=== PATIENT | female | born 1995 | race Caucasian/White ===

== ENCOUNTER → 2020-07-25 14:32 | Outpatient (BNVA) | payer MEDICAID, SELFPAY | PROVIDERS: PCP Internal Medicine; Visit Provider Obstetrics & Gynecology | DX: N93.9 Abnormal uterine and vaginal bleeding, unspecified (principal); E28.2 Polycystic ovarian syndrome | CPT/HCPCS: 99212 ==

== ENCOUNTER 2021-06-03 19:37 | Emergency (ER) | payer BC, SELFPAY | END 2021-06-03 20:57 | disposition left against medical advice (07) | PROVIDERS: Emergency Provider Emergency Medicine; PCP Internal Medicine | DX: R55 Syncope and collapse (principal); R10.9 Unspecified abdominal pain ==

== ENCOUNTER 2021-06-10 08:43 | Emergency (ER) | payer BC, MEDICAID, SELFPAY ==
--- NOTE | 2021-06-10 | ECG_ITS ---
Test Reason : RAPID HR Blood Pressure : / mmHG Vent. Rate : 118 BPM Atrial Rate : 118 BPM P-R Int : 112 ms QRS Dur : 080 ms QT Int : 330 ms P-R-T Axes : 026 059 030 degrees QTc Int : 462 ms Sinus tachycardia Nonspecific ST abnormality Abnormal ECG When compared with ECG of 10-JUN-2021 12:08, ST now depressed in Septal leads Heart rate has increased Referred By: Roxana Reyez Electronically Signed By:ELAINE DAVENPORT
--- NOTE | ~2021-06-10 | XR_ITS ---
EXAMINATION: XR ABDOMEN KUB CLINICAL INDICATION: Evaluate stool burden COMPARISON: None TECHNIQUE: AP view of the abdomen. FINDINGS: There does not appear to be a large amount of stool in the colon. There is a small amount of stool seen in the right colon. There are no dilated loops of bowel to suggest obstruction. There is no evidence of free air. There are surgical clips in the right upper quadrant suggestive previous cholecystectomy. Bony structures are unremarkable. XR/XR KUB IMPRESSION: Normal bowel gas pattern.
--- NOTE | ~2021-06-10 | CT_ITS ---
EXAMINATION: CT ABDOMEN AND PELVIS WITH CONTRAST CLINICAL INFORMATION: Right lower quadrant pain. Evaluate for appendicitis COMPARISON: KUB 06/10/2001 TECHNIQUE: Multidetector volumetric images were obtained from the superior aspect of the liver through the pubic symphysis following administration 85 mL of Omnipaque 350 intravenous contrast. Sagittal and coronal reformatted images were obtained on the technologist's workstation. Oral contrast: No This CT examination was performed using dose optimization techniques as appropriate, variously including the following: *Automated exposure control *Adjustment of mA and/or kV according to patient size (this includes techniques or standardized protocols for targeted exams where dose is matched to indication/reason for exam; i.e. extremities or head) *Use of iterative reconstruction technique DLP: 1082. mGy-cm FINDINGS: LUNG BASES: The visualized lung bases are unremarkable. LIVER, GALLBLADDER, AND BILIARY TREE: The liver is normal in size, shape, and attenuation. No focal hepatic lesion or biliary ductal dilatation is present. The gallbladder has been surgically removed. PANCREAS: Unremarkable. SPLEEN: Unremarkable. ADRENAL GLANDS: Unremarkable. KIDNEYS AND URETERS: The kidneys are normal in size, shape, and attenuation. No hydronephrosis, hydroureter, or calculi seen. No perinephric stranding. BLADDER: Unremarkable. GASTROINTESTINAL TRACT: There is scattered stool and gas seen in the right colon. The ileocecal junction is normal. The appendix is normal caliber. No inflammatory process seen in the right lower quadrant. The small bowel loops are normal caliber. ABDOMINAL WALL: No significant hernia is appreciated. LYMPH NODES: Normal. VASCULAR: Unremarkable. PELVIC VISCERA: There is a 2.5 cm cyst in the right adnexa likely ovarian in the region. The uterus is anteverted and unremarkable. OSSEOUS STRUCTURES: No lytic or sclerotic process seen. CT/CT abdomen pelvis w con IMPRESSION: Small right ovarian cyst. Normal appendix. Mild constipation.
[2021-06-10 09:07] VITALS: BP 112/68; PULSE 114; RESP 19; TEMP 36.9; O2SAT 98; BMI 42.3
--- NOTE | 2021-06-10 09:57 | ED_ITS ---
HPI - Abdominal Pain General Chief Complaint: Abdominal Pain Stated Complaint: abd pain Time Seen by Provider: 06/10/21 09:39 Source: patient Mode of arrival: ambulatory Limitations: no limitations History of Present Illness HPI narrative: 25-year-old female with a past medical history of IBS, PCOS, asthma here with complaints of acute on chronic abdominal pain for about 1 week. Patient tells me this is associated with intermittent nausea and vomiting. She tells me that she was seen at [facility] on June 04 for this problem. She had lab work and a CT scan of her abdomen which was unrem arkable. She followed up with her GI(Kali) after this. They trialed hyoscyamine but patient only took for one day. She felt like it did not help so she discontinued the medication. She has tried Bentyl in the past for this pain and that has not helped either. She has had continued constipation which is normal with her IBS per patient. She was taking MiraLax but discontinued that. She still is having very small and hard stools. She does take a bulk fiber daily. She intermittently takes a laxative. Patient tells me the pain is persistent and is constant. She feels like it initially started around her belly button but is now more focal on the right lower abdomen. Denies any vaginal discharge, urinary symptoms, fevers, chills. Additionally, patient reports she has had several episodes of passing out in the last week. One occurred while taking a hot shower and another while moving her bowels. She feels hot, lightheaded and then loses consciousness. Related Data Previous Rx's Medication Instructions Recorded ferrous sulfate 325 mg (65 mg 325 mg PO BID #60 tab 07/25/20 iron) tablet ketorolac 10 mg tablet 10 mg PO Q8H PRN #20 tab 06/10/21 lorazepam 1 mg tablet 1 mg PO TID PRN #5 tab 06/10/21 Allergies Allergy/AdvReac Type Severity Reaction Status Date / Time pineapple AdvReac Mild unknown Verified 07/25/20 14:45 Review of Systems Review of Systems Yes all other systems are reviewed and are negative Constitutional: Reports no additional constitutional complaints, Denies body ache(s), Denies chills, Denies fever(s), Denies headache(s) and Denies weakness Eyes: Reports no additional eye complaints and Denies change in vision Reports system reviewed and no additional complaints, except as documented, Denies dizziness, Denies headache(s), Denies nasal congestion, Denies nasal discharge and Denies neck pain Cardiovascular: Reports no additional cardiovascular complaints, Denies chest pain, Reports syncope, Denies leg edema and Denies dyspnea Respiratory: Reports no additional respiratory complaints, Denies cough and Denies dyspnea Gastrointestinal: Reports no additional gastrointestinal complaints, Reports abdominal pain, Reports constipation, Denies diarrhea, Reports nausea and Reports vomiting Genitourinary: Reports no additional female genitourinary complaints and Denies urinary incontinence Musculoskeletal: Reports no additional musculoskeletal complaints, Denies back pain, Denies arthralgias, Denies joint swelling, Denies neck pain, Denies numbness and Denies tingling Skin/Breast: Reports system reviewed and no additional complaints, except as docu and Denies rash Reports system reviewed and no additional complaints, except as documented, Denies Abnormal speech present, Denies dizziness, Reports syncope, Denies headache(s), Denies numbness, Denies tingling and Denies weakness Physical Exam Vital Signs: Vital Signs: Last Vital Signs Temp 97.8 F 06/10/21 14:28 Pulse 105 H 06/10/21 14:28 Resp 24 H 06/10/21 14:28 BP 113/70 06/10/21 14:28 Pulse Ox 97 06/10/21 14:28 Body Mass Index 42.3 Const: General: cooperative, healthy appearing, comfortable and no acute distress Orientation/consciousness: patient oriented x3 Limitations: no limitations HENMT: Head: Yes normal to inspection Ears: hearing grossly normal bilaterally General nose exam: Normal external nose present Face and sinus: Yes normal facial exam Mouth: Normal oral and palatal mucosa present Throat: Yes posterior oropharynx normal Eyes: General: appearance normal, both eyes and all related structures Pup ils: Equal, round and reactive pupils present Neck: Neck: Yes normal visual inspection Chest: Chest palpation & inspection: normal inspection of the chest Resp: Effort & Inspection: normal respiratory effort Auscultation: clear to auscultation bilaterally Cardio: Rate: regular rate Rhythm: regular rhythm Peripheral pulses: Peripheral pulses 2+ throughout GI: Inspection: Yes normal to inspection Palpation (GI): Soft to palpation and Tenderness to palpation present (GI) (Diffusely tender but more focal in the right lower quadrant with guarding) Auscultation: normal bowel sounds Back/Spine/Pelvis: Thoracic/Lumbar Spine: thoracic and lumbar spine normal to inspection Skin: General skin exam: no rashes or lesions noted Neuro: General: patient oriented x3, no focal motor deficits and normal sensation to monofilament Cranial nerves: Yes CN's II-XII intact bilaterally, Yes Equal, round and reactive pupils present, Yes Bilaterally intact EOM present, Yes Nystagmus not present, Yes Normal facial strength present and Yes Midline tongue present Cognition (Neuro): normal cognition Speech: No Abnormal speech present Gait exam (Neuro): Normal gait present Motor exam (neuro): 5/5 motor strength present throughout Sensory Exam: Normal double simultaneous stimulation for sensation Coordination: tandem gait normal Extrem: General: Yes normal to inspection, Yes no pedal edema and Yes no calf tenderness Course Course Course Narrative: 25-year-old female with a past medical history of PCOS, IBS, asthma here with complaints of abdominal pain for about 1 week which has been constant, persistent with associated nausea and vomiting. She was seen initially at [facility] and had a CT scan which showed no acute findings. She was discharged home and followed up with her GI. She was trialed for about 1 day on a new anti spasmodic with continued symptoms. Patient is he re today because the pain is continued and is more severe and more focal in the right lower quadrant. Exam she does have diffuse tenderness but has more focal tenderness in the right lower quadrant. Patient had a CT scan on June 04 which showed a normal appendix so acute appendicitis less likely. Will repeat labs, UA. Will place PIV and give antiemetics and analgesia and reassess 1215-labs are unremarkable with the exception of a mildly elevated AST and ALT which are likely secondary to fatty liver disease. Patient tells me her pain is continued after a dose of IV Toradol. Will give dose of IV morphine, Zofran and reassessed. Will discuss with patient's GI. 1245-spoke to on-call GI for [facility] (Carmita Littlejohn NP) from Dr Bass office. Recommended obtaining KUB and they will follow with patient outpatient. They may consider adding amitriptyline outpatient for pain control. 1230-While the patient received morphine she had a syncopal episode witnessed by nursing. Patient quite concerned she had a seizure although no history of same. There was no shaking, no tongue bite, no incontinence or postictal state so less likely. It was witnessed by nurse Breanne. Likely side effect of morphine. EKG normal. Vitals are all stable. Will continue to monitor. 1310-Called into room as patient was very anxious. Complaining of some chest discomfort. Her heart rate was noted to be 150-160 sinus tachycardia on the heart monitor. Able to have the patient do some deep breathing with heart rate improved to 110 for EKG. Repeat EKG shows sinus tachycardia with a rate of 118. Will give patient 2 mg of Ativan and reassess. 1430-HR rate improved now to 102. Patient able to tolerate some saltine crackers and has not vomited once since being here. However, continued pain despite IV meds. KUB(There does not appear to be a large amount of stool in the colon. There is a small amount of stool seen in the right colon. 1445-Lengthy discussion with patient at bedside. She continues to be quite concerned about her abdominal pain although she is now tolerating PO and appears quite well. We discussed at length her labs. I do not feel like it is beneficial to repeat her CT scan but she is quite insistent on this. Therefore after discussion with Dr Beckham we will repeat her CT scan. Patient also continued to tell me her concern over her episode while receiving morphine. Patient tells me she has had similar episodes while showering and having a bowel movement previously. These sound vasovagal and I reassured the patient her labs and EKG are normal and she can follow-up with her PCP in regards to this. 1645-CT abdomen/pelvis shows small right ovarian cyst. Normal appendix. Mild constipation.? I spoke to patient and reviewed her CT scan results. She was given a copy of the report for home. . Recommended re-starting miralax daily. Taking the hycosamine consistently at home. She has had some relief with toradol and ativan here so I will call in a small supply to her pharmacy. I recommended she continue to follow-up with GI. She may need additional testing outpatient including a colonoscopy/endoscopy. She tells me she had one this year and it was normal with the exception of polyps. Recommended continue to follow up with GI. Patient additionally concerned over these 'fainting' episodes which she has had at home and once here. Based on the HPI these sound vasovagal. Patient tells me she believes she had a seizure but describes the episodes at home similar to the episode she had here. The episode today was witnessed by staff and was NOT a seizure but a syncopal episode. We discussed in a young female such as she is we have ruled out major causes of syncope (, anemia, electrolyte abnormality, arrhythmia). Patient is requesting to see a neurologist and a CT scan of her brain. She has a normal neuro exam with no deficit. No reports of weakness, weakness, paresthesias, fevers with recent reports of syncope in the last week. Underlying ICH or mass occupying lesion less likely. I explained at length to the patient these sound like vasovagal symptoms and she can follow-up with her PCP in regards to these. We discussed triggers and maintaining a safe environment at home. I do feel the patient is quite anxious and perseverating on her symptoms. We had multiple conversations at the bedside and both myself and Dr Beckham have spoken to the patient, the patient's brother, the patient's grandmother and her partner. I attempted to broach this as being a contributing factor the patient's symptoms but she was quite resistant to this conversation. -Patient discharged in care of partner. Reviewed worrisome signs/symptoms with patient and when to return to the ED. Comfortable with discharge home. MDM - Abdominal Pain Medical Records Attestation: I reviewed the patient's medical records. Lab Data Attestation: I reviewed the patient's lab results. Result diagrams: 06/10/21 10:27 06/10/21 10:27 Labs: Lab Results 06/10/21 06/10/21 06/10/21 Range/Units 10:27 10:27 11:58 WBC 10.2 (4.8-10.8) X10*3/uL RBC 4.34 (4.20-5.50) X10*6/uL Hgb 11.7 L (12.0-16.0) g/dl Hct 35.9 L (37-47) % MCV 82.7 (80-98) fL MCH 27.0 (27.0-33.0) pg MCHC 32.6 (31.0-35.0) g/dl RDW 13.3 (11.0-16.0) % Plt Count 309 (160-400) X10*3/uL MPV 9.7 (9.4-12.3) fL Immature Gran % (Auto) 0.2 (0.0-0.4) % Neut % (Auto) 73.8 H (45-73) % Lymph % (Auto) 20.2 (20-40) % Providence % (Auto) 5.3 (2-11) % Eos % (Auto) 0.2 (0-4) % Baso % (Auto) 0.3 (0-2) % Lymph # (Auto) 2.1 (1.2-4.9) X10*3/uL Providence # (Auto) 0.5 (0.1-1.2) X10*3/uL Eos # (Auto) 0.0 (0.0-0.4) X10*3/uL Baso # (Auto) 0.0 (0.0-0.2) X10*3/uL Abs Immat Gran (auto) 0.02 (0.00-0.03) X10*3/uL Absolute Neuts (auto) 7.6 (2.0-8.3) X10*3/uL Absolute Nucleated RBC 0.000 (0.0-0.012) X10*3/uL Nucleated RBC % (auto) 0.0 (0.0-0.2) /100WBC Sodium 139 (135-145) mmol/L Potassium 4.1 (3.3-5.1) mmol/L Chloride 105 (96-108) mmol/L Carbon Dioxide 26 (22-29) mmol/L Anion Gap 12 (12-20) BUN 9 (9-16) mg/dL Creatinine 0.79 (0.5-1.4) mg/dL Estim Creat Clear Calc 150.2 Estimated GFR > 60 Random Glucose 110 (60-115) mg/dL Calcium 8.8 (8.4-10.2) mg/dL Total Bilirubin 0.3 (0.0-1.0) mg/dL Direct Bilirubin 0.2 (0.0-0.5) mg/dL AST 35 H (5-31) U/L ALT 57 H (0-31) U/L Alkaline Phosphatase 127 H (39-117) U/L Total Protein 6.9 (6.5-8.0) g/dL Albumin 3.7 (3.5-5.0) g/dL Lipase 16 (8-78) U/L Urine Color YELLOW Urine Appearance CLEAR Urine pH 6.0 (5.0-8.0) Ur Specific Humphrey 1.015 (1.005-1.025) Urine Protein NEG (NEG-TRACE) MG/DL Urine Glucose (UA) NEG (NEG) MG/DL Urine Ketones NEG (NEG) MG/DL Urine Blood TRACE (NEG) Urine Nitrite NEG (NEG) Ur Leukocyte Esterase NEG (NEG) Urine RBC 0-2 (0) /HPF Urine WBC 1-4 (0-4) /HPF Ur Squamous Epith Cells 1+ /LPF Urine Bacteria NONE /LPF Urine Test (NEGATIVE) 06/10/21 Range/Units 11:58 WBC (4.8-10.8) X10*3/uL RBC (4.20-5.50) X10*6/uL Hgb (12.0-16.0) g/dl Hct (37-47) % MCV (80-98) fL MCH (27.0-33.0) pg MCHC (31.0-35.0) g/dl RDW (11.0-16.0) % Plt Count (160-400) X10*3/uL MPV (9.4-12.3) fL Immature Gran % (Auto) (0.0-0.4) % Neut % (Auto) (45-73) % Lymph % (Auto) (20-40) % Providence % (Auto) (2-11) % Eos % (Auto) (0-4) % Baso % (Auto) (0-2) % Lymph # (Auto) (1.2-4.9) X10*3/uL Providence # (Auto) (0.1-1.2) X10*3/uL Eos # (Auto) (0.0-0.4) X10*3/uL Baso # (Auto) (0.0-0.2) X10*3/uL Abs Immat Gran (auto) (0.00-0.03) X10*3/uL Absolute Neuts (auto) (2.0-8.3) X10*3/uL Absolute Nucleated RBC (0.0-0.012) X10*3/uL Nucleated RBC % (auto) (0.0-0.2) /100WBC Sodium (135-145) mmol/L Potassium (3.3-5.1) mmol/L Chloride (96-108) mmol/L Carbon Dioxide (22-29) mmol/L Anion Gap (12-20) BUN (9-16) mg/dL Creatinine (0.5-1.4) mg/dL Estim Creat Clear Calc Estimated GFR Random Glucose (60-115) mg/dL Calcium (8.4-10.2) mg/dL Total Bilirubin (0.0-1.0) mg/dL Direct Bilirubin (0.0-0.5) mg/dL AST (5-31) U/L ALT (0-31) U/L Alkaline Phosphatase (39-117) U/L Total Protein (6.5-8.0) g/dL Albumin (3.5-5.0) g/dL Lipase (8-78) U/L Urine Color Urine Appearance Urine pH (5.0-8.0) Ur Specific Humphrey (1.005-1.025) Urine Protein (NEG-TRACE) MG/DL Urine Glucose (UA) (NEG) MG/DL Urine Ketones (NEG) MG/DL Urine Blood (NEG) Urine Nitrite (NEG) Ur Leukocyte Esterase (NEG) Urine RBC (0) /HPF Urine WBC (0-4) /HPF Ur Squamous Epith Cells /LPF Urine Bacteria /LPF Urine Test NEGATIVE (NEGATIVE) Imaging Data Abdominal x-ray: Attestation: I personally reviewed and interpreted this imaging study as follows: Radiologist's impression: [place] [id number] XRay Report Signed Patient: Jossie Ramirez MR#: [id number] : 1995 Acct:[id number] Age/Sex: 25 / F ADM Date: 06/10/21 Loc: HO.ED Attending Dr: Ordering Physician: Roxana Reyez NP Date of Service: 06/10/21 Procedure(s): XR KUB Accession Number(s): [id number] cc: Roxana Reyez NP~ EXAMINATION: XR ABDOMEN KUB CLINICAL INDICATION: Evaluate stool burden? COMPARISON: None? TECHNIQUE: AP view of the abdomen. FINDINGS: There does not appear to be a large amount of stool in the colon. There is a small amount of stool seen in the right colon. There are no dilated loops of bowel to suggest obstruction. There is no evidence of free air. There are surgical clips in the right upper quadrant suggestive previous cholecystectomy. Bony structures are unremarkable. XR/XR KUB IMPRESSION: Normal bowel gas pattern. ? CT scan - abdomen: Attestation: I personally reviewed and interpreted this imaging study as follows: Radiologist's impression: FINDINGS: LUNG BASES: The visualized lung bases are unremarkable.? LIVER, GALLBLADDER, AND BILIARY TREE: The liver is normal in size, shape, and attenuation. No focal hepatic lesion or biliary ductal dilatation is present. The gallbladder has been surgically removed.? PANCREAS: Unremarkable.? SPLEEN: Unremarkable.? ADRENAL GLANDS: Unremarkable.? KIDNEYS AND URETERS: The kidneys are normal in size, shape, and attenuation. No hydronephrosis, hydroureter, or calculi seen. No perinephric stranding. ? BLADDER: Unremarkable.? GASTROINTESTINAL TRACT: There is scattered stool and gas seen in the right colon. The ileocecal junction is normal. The appendix is normal caliber. No inflammatory process seen in the right lower quadrant. The small bowel loops are normal caliber.? ABDOMINAL WALL: No significant hernia is appreciated.? LYMPH NODES: Normal. VASCULAR: Unremarkable. PELVIC VISCERA: There is a 2.5 cm cyst in the right adnexa likely ovarian in the region. The uterus is anteverted and unremarkable.? OSSEOUS STRUCTURES: No lytic or sclerotic process seen.? CT/CT abdomen pelvis w con IMPRESSION: Small right ovarian cyst. ? Normal appendix. Mild constipation.? ECG Data Attestation: I personally reviewed and interpreted this ECG as follows: ECG interpretation date: 06/10/21 ECG interpretation time: 12:08 Interpretation: Normal sinus rhythm with a rate of 90, normal PA, normal QRS, normal QT repeat 1310-sinus tachycardia with a rate of when 18, normal PA, normal QRS, normal QT Critical Care Time Critical Care Time Critical Care Time: Yes Total Critical Care Time: 120 Attestation: I have spoken to the patient at length at the bedside, discussed the case with my attending dr beckham, spoken to the patients GI provider, re- examined her abdomen on multiple occasions and spoke to her brother, grandmother and partner. Discharge Plan Discharge Clinical Impression: Abdominal pain, Irritable bowel syndrome, Ovarian cyst, Syncope Patient Disposition: Home, Self-Care Instructions: Ovarian Cyst (ED), Irritable Bowel Syndrome (ED), Syncope (ED), Abdominal Pain (ED) Additional Instructions: Start miralax daily as discussed Continue hyoscyamine up to 3 times daily Call GI tomorrow as discussed to follow-up. Call your primary care doctor to discuss your syncopal episodes. Change positions slowly. Eat small frequent meals. Safe environments at home as discussed. Prescriptions: New ketorolac 10 mg tablet 10 mg PO Q8H PRN (Reason: pain) Qty: 20 RF: 0 lorazepam 1 mg tablet 1 mg PO TID PRN (Reason: anxiety) Qty: 5 RF: 0 No Action ferrous sulfate 325 mg (65 mg iron) tablet 325 mg PO BID Qty: 60 RF: 3 Referrals: Po,Russ Membreno MD [Primary Care Provider] - 2 days Alisa Bass MD [Physician] - 2 days Stand Alone Forms: Work/School Release Discharge Date/Time: 06/10/21 17:00 [facility] Past Medical History Attestation statement: The following information was validated with the patient. Source: old records reviewed and nursing notes reviewed Medical History Anxiety and depression Asthma IBS (irritable bowel syndrome) Migraines PCOS (polycystic ovarian syndrome) Surgical History History of laparoscopic cholecystectomy History of tonsillectomy Family History Family History Maternal Grandmother Myocardial infarction Lymphoma Family/Other Colon cancer Social History Social History Alcohol intake: never Advance Directives: No Patient : No Sexual orientation: Straight/Heterosexual Gender identity: Female
[2021-06-10 10:19] VITALS: BP 97/58; PULSE 74; RESP 14; TEMP 36.7; O2SAT 97
[2021-06-10] MEDS: Ketorolac Tromethamine 15 MG/ML VIAL 30 MG IVPUSH ×2 (10:29→16:04)
[2021-06-10] MEDS: 0.9 % Sodium Chloride 1,000 ML 999 ML IV (10:29)
[2021-06-10] MEDS: ondansetron HCL 4 MG/2 ML VIAL IVPUSH ×2 (10:29→11:59)
[2021-06-10 10:31] LABS: MANUAL DIFF FLAG NO
[2021-06-10 10:35] LABS: Basophils Percent Auto 0.3 % (0-2); Eosinophils Percent Auto 0.2 % (0-4); Hematocrit 35.9 % (37-47); Hemoglobin 11.7 g/dl (12.0-16.0); Imm Gran Abs Auto 0.02 X10*3/uL (0.00-0.03); Imm Gran Pct Auto 0.2 % (0.0-0.4); Lymphocytes Absolute Auto 2.1 X10*3/uL (1.2-4.9); Lymphocytes Percent Auto 20.2 % (20-40); Mean Corpuscular HGB Conc 32.6 g/dl (31.0-35.0); Mean Corpuscular Volume 82.7 fL (80-98); Mean Platelet Volume 9.7 fL (9.4-12.3); Monocytes Absolute Auto 0.5 X10*3/uL (0.1-1.2); Monocytes Percent Auto 5.3 % (2-11); Neutrophils Absolute Auto 7.6 X10*3/uL (2.0-8.3); Neutrophils Percent Auto 73.8 % (45-73); Platelet Count 309 X10*3/uL (160-400); Red Blood Count 4.34 X10*6/uL (4.20-5.50); Red Cell Distribution Width 13.3 % (11.0-16.0); White Blood Count 10.2 X10*3/uL (4.8-10.8)
[2021-06-10 10:52] LABS: Alanine Aminotransferase 57 U/L (0-31); Albumin Level 3.7 g/dL (3.5-5.0); Alkaline Phosphatase 127 U/L (39-117); Anion Gap 12 (12-20); Aspartate Amino Transferase 35 U/L (5-31); Bilirubin Direct 0.2 mg/dL (0.0-0.5); Bilirubin Total 0.3 mg/dL (0.0-1.0); Blood Urea Nitrogen 9 mg/dL (9-16); Calcium 8.8 mg/dL (8.4-10.2); Carbon Dioxide 26 mmol/L (22-29); Chloride 105 mmol/L (96-108); Creatinine Clr Calc Pharmacy 150.2; Estimated Glomerular Filt Rate > 60; Glucose Random 110 mg/dL (60-115); Lipase 16 U/L (8-78); Potassium 4.1 mmol/L (3.3-5.1); Sodium 139 mmol/L (135-145); Total Protein 6.9 g/dL (6.5-8.0)
[2021-06-10 11:04] VITALS: BP 106/57; PULSE 72; RESP 18; TEMP 36.3; O2SAT 98
--- NOTE | 2021-06-10 11:37 | PC.NURSE ---
Patient states 7/10 abdominal pain. States some relief. States would like to try some water. Able to tolerate water. VSS. Resting safely.
[2021-06-10] MEDS: Morphine Sulfate 4 MG/ML CARTRIDGE IVPUSH (12:00)
--- NOTE | 2021-06-10 12:16 | ECG_ITS ---
Test Reason : SYNCOPE Blood Pressure : / mmHG Vent. Rate : 090 BPM Atrial Rate : 090 BPM P-R Int : 150 ms QRS Dur : 078 ms QT Int : 378 ms P-R-T Axes : 043 037 031 degrees QTc Int : 462 ms Normal sinus rhythm Normal ECG No previous ECGs available Referred By: Roxana Reyez Electronically Signed By:ELAINE DAVENPORT
[2021-06-10 12:22] LABS: Appearance Urine CLEAR; Color Urine YELLOW; Glucose Urine UA NEG (NEG); Leukocyte Esterase Urine NEG (NEG); Nitrite Urine NEG (NEG); Specific Gravity - Urine 1.015 (1.005-1.025); UACC Culture Trigger NO; Urine Blood TRACE (NEG); Urine Ketones NEG (NEG); Urine Protein NEG (NEG-TRACE)
[2021-06-10 12:24] LABS: UPreg QC Valid YES; Urine Pregnancy NEGATIVE (NEGATIVE)
[2021-06-10 12:41] LABS: RBC Urine 0-2 /HPF (0); Squamous Epithelial Cell Urine 1+ /LPF
[2021-06-10] MEDS: LORazepam 2 MG/ML VIAL IVPUSH (13:13)
--- NOTE | 2021-06-10 13:42 | PC.NURSE ---
At 1230 patient began to hyperventilate. HR went up to 160s. EKG done, vitals taken. VSS. Patient beared down by blowing through a straw. Resting safely. Around 1300 patient began hyperventilating again, HR went up to 160s. EKG done. Vitals take VSS. Resting safely.
[2021-06-10 14:28] VITALS: BP 113/70; PULSE 105; RESP 24; TEMP 36.6; O2SAT 97
[2021-06-10] MEDS: iohexoL 350 MG/ML 100 ML INFUS..BTL IV (15:30)
[2021-06-10] MEDS: diphenhydrAMINE HCL 50 MG/ML VIAL 25 MG IVPUSH (16:02)
[2021-06-10] MEDS: LORazepam 2 MG/ML VIAL 1 MG IVPUSH (16:04)
== END 2021-06-10 17:00 | disposition home or self-care (01) ==
PROVIDERS: Nurse Practitioner Family; Emergency Provider Emergency Medicine Emergency Medical Services; PCP Internal Medicine
DX: N83.201 Unspecified ovarian cyst, right side (principal); K58.9 Irritable bowel syndrome, unspecified; R55 Syncope and collapse; R10.9 Unspecified abdominal pain; Z79.899 Other long term (current) drug therapy
CPT/HCPCS: 36415; 74018; 74177; 80048; 80076; 81001; 81025; 83690; 85025; 93005; 96361; 96374; 96375; 96376; 99284; 99291; 99292; J1200; J1885; J2060; J2270; J2405; Q9967

== ENCOUNTER 2021-09-02 16:28 | Emergency (ER) | payer BC, SELFPAY ==
--- NOTE | ~2021-09-02 | XR_ITS ---
EXAMINATION: XR CHEST CLINICAL INFORMATION: Cough COMPARISON: None TECHNIQUE: Frontal view of the chest was obtained. FINDINGS: No significant abnormality is noted involving the heart, lungs, mediastinum, bony thorax or soft tissues. XR/XR chest 1V IMPRESSION: Unremarkable examination.
--- NOTE | ~2021-09-02 | CT_ITS ---
EXAMINATION: CT ANGIOGRAM OF THE CHEST WITH AND WITHOUT CONTRAST (CT PULMONARY ANGIOGRAM FOR PE) CLINICAL INFORMATION: Reason for Exam Hemoptysis COMPARISON: None TECHNIQUE: Prior to contrast administration, noncontrast localization images were obtained. Subsequently, multidetector volumetric imaging was performed from the thoracic inlet to below the diaphragms following the administration of 65 mL Omnipaque 350 intravenous contrast. No contrast reaction reported Sagittal, coronal, and MIP oblique sagittal reformatted images were obtained on the CT workstation, uploaded to PACS, and reviewed. This CT examination was performed using dose optimization techniques as appropriate, variously including the following: *Automated exposure control *Adjustment of mA and/or kV according to patient size (this includes techniques or standardized protocols for targeted exams where dose is matched to indication/reason for exam; i.e. extremities or head) *Use of iterative reconstruction technique Total exam dose-length product 507 mGy-cm FINDINGS: QUALITY OF STUDY/CONTRAST BOLUS: Satisfactory. PULMONARY ARTERIES: No central or segmental pulmonary emboli. THORACIC AORTA: No aneurysm or dissection. LUNG: No focal consolidation, nodules or masses. PLEURA: No pleural effusion or pneumothorax. MEDIASTINUM: Normal heart size. Residual thymic tissue is present. No pericardial effusion. No hilar or mediastinal lymphadenopathy. No evidence of septal bowing or right heart strain. CHEST WALL/AXILLA: No axillary or internal mammary lymphadenopathy. OSSEOUS STRUCTURES: No acute or suspicious osseous abnormality. UPPER ABDOMEN: A small hiatal hernia is present. Status post cholecystectomy. No reflux of contrast into the hepatic veins to suggest elevated right heart pressures. CT/CT angio chest PE protocol IMPRESSION: No evidence of pulmonary emboli VTE: negative
[2021-09-02 17:54] VITALS: BP 126/86; PULSE 94; RESP 20; TEMP 36.6; O2SAT 98; BMI 41.9
--- NOTE | 2021-09-02 17:56 | ECG_ITS ---
Test Reason : CP Blood Pressure : / mmHG Vent. Rate : 089 BPM Atrial Rate : 089 BPM P-R Int : 126 ms QRS Dur : 076 ms QT Int : 354 ms P-R-T Axes : 029 024 016 degrees QTc Int : 430 ms Normal sinus rhythm Normal ECG When compared with ECG of 10-JUN-2021 13:10, No significant change was found Referred By: Generic ED Physician Electronically Signed By:VALERIO SIMS
--- NOTE | 2021-09-02 20:24 | ED_ITS ---
HPI - Chest Pain General Chief Complaint: Chest Pain Stated Complaint: coughing blood; chest pain Source: patient Mode of arrival: ambulatory Limitations: no limitations History of Present Illness HPI narrative: 25-year-old female presents with approximately 1 month of hemoptysis with blood clots and chest pain for approximately 1 week. complaint: chest pain and chest discomfort Onset (ago): week(s) Timing of current episode: episodic Pain location: right chest Pain radiation: none Severity: moderate Quality: aching Relieving factors: nothing Associated symptoms: other (Hemoptysis) Treatment prior to arrival: none Risk Factors Coronary artery disease risk factors: none Thoracic aortic dissection risk factors: none Related Data On Oral Contraceptives: Yes (NuvaRing) Home Medications Medication Instructions Recorded Confirmed lactobacillus combo no.11 15 1 cap PO DAILY 06/12/21 09/02/21 billion cell sprinkle capsule (Probiotic) prazosin 1 mg capsule 1 mg PO BEDTIME 06/12/21 09/02/21 wheat dextrin 3 gram/3.5 gram oral 1 packet PO DAILY 06/12/21 09/02/21 powder (Best Fiber) etonogestrel 0.12 mg-ethinyl 1 vag ring VAGINAL Q4W 09/02/21 09/02/21 estradiol 0.015 mg/24 hr vaginal ring (NuvaRing) melatonin 5 mg capsule mg PO 09/02/21 09/02/21 venlafaxine 100 mg tablet 375 mg PO DAILY tab 09/02/21 09/02/21 Previous Rx's Medication Instructions Recorded ferrous sulfate 325 mg (65 mg 325 mg PO DAILY #60 tab 06/12/21 iron) tablet hydroxyzine pamoate 25 mg capsule 25 mg PO BEDTIME #30 cap 09/02/21 (Vistaril) Allergies Allergy/AdvReac Type Severity Reaction Status Date / Time beeswax Allergy Anaphylaxis Verified 09/02/21 17:53 morphine Allergy Seizure Verified 09/02/21 17:53 pineapple AdvReac Mild unknown Verified 09/02/21 17:53 coconut AdvReac Rash Verified 09/02/21 17:53 Review of Systems Review of Systems: Constitutional: No Weight loss, No Fever, No Chills, No Night Sweats, No Fa tigue, No Malaise ENT/Mouth: No Hearing loss, No Ear Pain, No Nasal Congestion, No Sinus Pain, No Hoarseness, No sore throat, No Rhinorrhea, No Swallowing Difficulty Eyes: No Eye Pain, No Swelling, No Redness, No Foreign Body, No Discharge, No Vision Changes Cardiovascular: Positive Chest Pain, no SOB, no Dyspnea on Exertion, No Orthopnea, No Edema, No Palpitations Respiratory: Positive hemoptysis,Positive Cough, No Sputum, No Wheezing, No Smoke Exposure, No Dyspnea Gastrointestinal: No Nausea, No Vomiting, No Diarrhea, No abdominal Pain, No Hematochezia, No Melena Genitourinary: No irregular bleeding, No Dysuria, No Urinary Frequency, No Hematuria, No Urinary Incontinence, No Urgency, No Flank Pain, No Urinary Flow Changes, No Hesitancy Musculoskeletal: No joint pain, No Myalgias, No Joint Swelling Skin: No Skin Lesions, No rash Neuro: No Weakness, No Numbness, No Paresthesias, No Loss of Consciousness, No Dizziness, No Headache Psych: No Anxiety/Panic, No Depression, No SI/HI/AH/VH Heme/Lymph: No Bruising, No Bleeding,No Lymphadenopathy Endocrine: No Polyuria, No Polydipsia, No Temperature Intolerance Yes all other systems are reviewed and are negative [facility] Past Medical History Attestation statement: The following information was validated with the patient. Source: old records reviewed Medical History Anxiety and depression Asthma IBS (irritable bowel syndrome) Migraines PCOS (polycystic ovarian syndrome) Surgical History History of laparoscopic cholecystectomy History of tonsillectomy Family History Family History Maternal Grandmother Myocardial infarction Lymphoma Family/Other Colon cancer Social History Social History Housing: House Alcohol intake: never Patient Tobacco Use Status: Never used Tobacco e-Cigarette/Vaping Use: Never Used Second Hand Smoke Exposure: No Advance Directives: No Advance Directives Information Provided: No Patient : No Current occupational status: employed Sexual orientation: Straight/Heterosexual Gender identity: Female Physical Exam Vital Signs: Vital Signs: Last Vital Signs Temp 97.9 F 09/02/21 17:54 Pulse 105 H 09/02/21 21:50 Resp 22 H 09/02/21 21:50 BP 128/66 09/02/21 21:50 Pulse Ox 98 09/02/21 21:50 BMI result Body Mass Index 41.9 Appearance: Alert. Oriented X3. No acute distress. Eyes: Pupils equal, round and reactive to light. ENT: Pharynx normal. Neck: Normal inspection. Neck supple. CVS: Tachycardic heart rate and rhythm. Apical pulses equal 2 pulses to extremities. Respiratory: No respiratory distress. Lung sounds clear to auscultation all lobes. Abdomen: Soft and nontender. Skin: Skin warm and dry. Normal skin color. Normal skin turgor. Extremities: No lower extremity edema. Gait well-balanced well coordinated. Neuro: No motor deficit. No sensory deficit. Cranial nerves 2-12 intact Course Course Course Narrative: 25-year-old female presents for hemoptysis has been coughing blood clots over the past month. She coughed up a blood clot today that was about the size of a quarter. She is tachycardic at this time the heart rate 90- 97. Does use NuvaRing control. Family history of tuberculosis. Patient has been tested for tuberculosis in the past which is negative. She has not traveled outside of the country does not have any other complaints at this time. X-rays are negative at this time. Will order CT study. CT PE negative for acute findings. Will refer patient to pulmonology for hemoptysis. Patient verbalized understanding of and agrees to plan of care discharge home. MDM - Chest Pain Differential Diagnosis Differential diagnosis: Likely fracture of rib, pneumothorax, atypical chest pain, st elevation myocardial infarction, costochondritis and chest pain Differential diagnosis: PE Medical Records Data Attestation: I reviewed the patient's medical records. Lab Data Attestation: I reviewed the patient's lab results. Result diagrams: 09/02/21 20:19 09/02/21 20:19 Labs: Lab Results 09/02/21 09/02/21 09/02/21 Range/Units 20:19 20:19 20:19 WBC 12.3 H (4.8-10.8) X10*3/uL RBC 4.74 (4.20-5.50) X10*6/uL Hgb 12.7 (12.0-16.0) g/dl Hct 39.3 (37.0-47.0) % MCV 82.9 (80.0-98.0) fL MCH 26.8 L (27.0-33.0) pg MCHC 32.3 (31.0-35.0) g/dl RDW 14.3 (11.0-16.0) % Plt Count 347 (160-400) X10*3/uL MPV 10.1 (9.4-12.3) fL Immature Gran % (Auto) 0.3 (0.0-0.4) % Neut % (Auto) 72.8 (45-73) % Lymph % (Auto) 21.7 (20-40) % Major % (Auto) 5.0 (2-11) % Eos % (Auto) 0.0 (0-4) % Baso % (Auto) 0.2 (0-2) % Lymph # (Auto) 2.7 (1.2-4.9) X10*3/uL Major # (Auto) 0.6 (0.1-1.2) X10*3/uL Eos # (Auto) 0.0 (0.0-0.4) X10*3/uL Baso # (Auto) 0.0 (0.0-0.2) X10*3/uL Abs Immat Gran (auto) 0.04 H (0.00-0.03) X10*3/uL Absolute Neuts (auto) 9.0 H (2.0-8.3) x10*3/uL Absolute Nucleated RBC 0.000 (0.0-0.012) X10*3/uL Nucleated RBC % (auto) 0.0 (0.0-0.2) /100WBC Sodium 138 (135-145) mmol/L Potassium 4.0 (3.3-5.1) mmol/L Chloride 105 (96-108) mmol/L Carbon Dioxide 23 (22-29) mmol/L Anion Gap 14 (12-20) BUN 11 (9-16) mg/dL Creatinine 0.83 (0.5-1.4) mg/dL Estim Creat Clear Calc 137.7 Estimated GFR > 60 Random Glucose 91 (60-115) mg/dL Calcium 9.5 D (8.4-10.2) mg/dL Troponin I High Sens < 3.5 (<3.5-17.0) ng/L Urine Color Urine Appearance Urine pH (5.0-8.0) Ur Specific [place] (1.005-1.025) Urine Protein (NEG-TRACE) MG/DL Urine Glucose (UA) (NEG) MG/DL Urine Ketones (NEG) MG/DL Urine Blood (NEG) Urine Nitrite (NEG) Ur Leukocyte Esterase (NEG) Urine RBC (0) /HPF Urine WBC (0-4) /HPF Ur Squamous Epith Cells /LPF Urine Bacteria /LPF Urine Test (NEGATIVE) COVID-19 ([facility]) (Negative) COVID-19 Clin Com 09/02/21 09/02/21 09/02/21 Range/Units 20:19 21:08 21:08 WBC (4.8-10.8) X10*3/uL RBC (4.20-5.50) X10*6/uL Hgb (12.0-16.0) g/dl Hct (37.0-47.0) % MCV (80.0-98.0) fL MCH (27.0-33.0) pg MCHC (31.0-35.0) g/dl RDW (11.0-16.0) % Plt Count (160-400) X10*3/uL MPV (9.4-12.3) fL Immature Gran % (Auto) (0.0-0.4) % Neut % (Auto) (45-73) % Lymph % (Auto) (20-40) % Major % (Auto) (2-11) % Eos % (Auto) (0-4) % Baso % (Auto) (0-2) % Lymph # (Auto) (1.2-4.9) X10*3/uL Major # (Auto) (0.1-1.2) X10*3/uL Eos # (Auto) (0.0-0.4) X10*3/uL Baso # (Auto) (0.0-0.2) X10*3/uL Abs Immat Gran (auto) (0.00-0.03) X10*3/uL Absolute Neuts (auto) (2.0-8.3) x10*3/uL Absolute Nucleated RBC (0.0-0.012) X10*3/uL Nucleated RBC % (auto) (0.0-0.2) /100WBC Sodium (135-145) mmol/L Potassium (3.3-5.1) mmol/L Chloride (96-108) mmol/L Carbon Dioxide (22-29) mmol/L Anion Gap (12-20) BUN (9-16) mg/dL Creatinine (0.5-1.4) mg/dL Estim Creat Clear Calc Estimated GFR Random Glucose (60-115) mg/dL Calcium (8.4-10.2) mg/dL Troponin I High Sens (<3.5-17.0) ng/L Urine Color YELLOW Urine Appearance CLEAR Urine pH 6.0 (5.0-8.0) Ur Specific [place] 1.025 (1.005-1.025) Urine Protein NEG (NEG-TRACE) MG/DL Urine Glucose (UA) NEG (NEG) MG/DL Urine Ketones NEG (NEG) MG/DL Urine Blood TRACE (NEG) Urine Nitrite NEG (NEG) Ur Leukocyte Esterase NEG (NEG) Urine RBC 0-2 (0) /HPF Urine WBC 1-4 (0-4) /HPF Ur Squamous Epith Cells 2+ /LPF Urine Bacteria 2+ /LPF Urine Test NEGATIVE (NEGATIVE) COVID-19 ([facility]) Negative (Negative) COVID-19 Clin Com See Note Imaging Data Chest x-ray: Attestation: I personally reviewed and interpreted this imaging study as follows: Radiologist's impression: EXAMINATION: XR CHEST CLINICAL INFORMATION: Cough COMPARISON: None TECHNIQUE: Frontal view of the chest was obtained. FINDINGS: No significant abnormality is noted involving the heart, lungs, mediastinum, bony thorax or soft tissues. XR/XR chest 1V IMPRESSION: Unremarkable examination. CT PE: Attestation: I personally reviewed and interpreted this imaging study as follows: Radiologist's impression: FINDINGS: QUALITY OF STUDY/CONTRAST BOLUS: Satisfactory. PULMONARY ARTERIES: No central or segmental pulmonary emboli.? THORACIC AORTA: No aneurysm or dissection. LUNG: No focal consolidation, nodules or masses. PLEURA: No pleural effusion or pneumothorax. MEDIASTINUM: Normal heart size. Residual thymic tissue is present. No pericardial effusion.? No hilar or mediastinal lymphadenopathy.? No evidence of septal bowing or right heart strain. CHEST WALL/AXILLA: No axillary or internal mammary lymphadenopathy. OSSEOUS STRUCTURES: No acute or suspicious osseous abnormality.? UPPER ABDOMEN: A small hiatal hernia is present. Status post cholecystectomy. No reflux of contrast into the hepatic veins to suggest elevated right heart pressures. CT/CT angio chest PE protocol IMPRESSION: No evidence of pulmonary emboli ? VTE: negative Discharge Plan Discharge Clinical Impression: Coughing up blood Patient Disposition: Home, Self-Care Instructions: Hemoptysis (ED) Additional Instructions: You were evaluated for hemoptysis, coughing of blood. Chest x-rays negative for acute findings. CT PE is negative for blood clots and pulmonary embolism. Your lab values are limits. Your COVID test is negative. Please follow-up with pulmonology for hemoptysis. Thank you for choosing this emergency department for evaluation. Please follow -up with primary care physician as needed. Return to the emergency department for any new, concerning, or worsening symptoms. Prescriptions: No Action venlafaxine 100 mg tablet 375 mg PO DAILY RF: 0 etonogestrel-ethinyl estradiol [NuvaRing] 0.12-0.015 mg/24 hr ring 1 vag ring vaginal Q4W RF: 0 melatonin 5 mg capsule PO RF: 0 hydroxyzine pamoate [Vistaril] 25 mg capsule 25 mg PO BEDTIME Qty: 30 RF: 0 prazosin 1 mg capsule 1 mg PO BEDTIME RF: 0 Best Fiber 3 gram/3.5 gram powder 1 packet PO DAILY RF: 0 Probiotic 15 billion cell capsule, sprinkle 1 cap PO DAILY RF: 0 ferrous sulfate 325 mg (65 mg iron) tablet 325 mg PO DAILY Qty: 60 RF: 3 Referrals: Frank Andre MD [Physician] - 2 days (Hemoptysis) Interventions: ED Discharge Assessment Last Done: 09/02/21 23:24 Discharge Date/Time: 09/02/21 23:26
[2021-09-02 20:28] LABS: MANUAL DIFF FLAG NO
[2021-09-02 20:29] LABS: Basophils Percent Auto 0.2 % (0-2); Hematocrit 39.3 % (37.0-47.0); Hemoglobin 12.7 g/dl (12.0-16.0); Imm Gran Abs Auto 0.04 X10*3/uL (0.00-0.03); Imm Gran Pct Auto 0.3 % (0.0-0.4); Lymphocytes Absolute Auto 2.7 X10*3/uL (1.2-4.9); Lymphocytes Percent Auto 21.7 % (20-40); Mean Corpuscular HGB Conc 32.3 g/dl (31.0-35.0); Mean Corpuscular Hemoglobin 26.8 pg (27.0-33.0); Mean Corpuscular Volume 82.9 fL (80.0-98.0); Mean Platelet Volume 10.1 fL (9.4-12.3); Monocytes Absolute Auto 0.6 X10*3/uL (0.1-1.2); Neutrophils Percent Auto 72.8 % (45-73); Platelet Count 347 X10*3/uL (160-400); Red Blood Count 4.74 X10*6/uL (4.20-5.50); Red Cell Distribution Width 14.3 % (11.0-16.0); White Blood Count 12.3 X10*3/uL (4.8-10.8)
[2021-09-02 20:44] LABS: COVID-19 Test Negative (Negative)
[2021-09-02 20:45] LABS: Anion Gap 14 (12-20); Blood Urea Nitrogen 11 mg/dL (9-16); Calcium 9.5 mg/dL (8.4-10.2); Carbon Dioxide 23 mmol/L (22-29); Chloride 105 mmol/L (96-108); Creatinine Clr Calc Pharmacy 137.7; Estimated Glomerular Filt Rate > 60; Glucose Random 91 mg/dL (60-115); Sodium 138 mmol/L (135-145)
[2021-09-02 20:47] LABS: Troponin-I High Sensitivity < 3.5 ng/L (<3.5-17.0)
[2021-09-02 21:15] LABS: Appearance Urine CLEAR; Color Urine YELLOW; Glucose Urine UA NEG (NEG); Leukocyte Esterase Urine NEG (NEG); Nitrite Urine NEG (NEG); Specific Gravity - Urine 1.025 (1.005-1.025); UACC Culture Trigger NO; Urine Blood TRACE (NEG); Urine Ketones NEG (NEG); Urine Protein NEG (NEG-TRACE)
[2021-09-02 21:16] LABS: UPreg QC Valid YES; Urine Pregnancy NEGATIVE (NEGATIVE)
[2021-09-02 21:25] LABS: Bacteria Urine 2+ /LPF; Squamous Epithelial Cell Urine 2+ /LPF
[2021-09-02 21:26] LABS: RBC Urine 0-2 /HPF (0)
--- NOTE | 2021-09-02 21:46 | PC.NURSE ---
pt up to restroom for urine sample to lab for eval.
[2021-09-02 21:50] VITALS: BP 128/66; PULSE 105; RESP 22; O2SAT 98
[2021-09-02] MEDS: iohexoL 350 MG/ML 100 ML INFUS..BTL IV (22:03)
== END 2021-09-02 23:26 | disposition home or self-care (01) ==
PROVIDERS: Nurse Practitioner Family; Emergency Provider Internal Medicine; PCP Internal Medicine
DX: R04.2 Hemoptysis (principal); R07.9 Chest pain, unspecified; Z79.899 Other long term (current) drug therapy; Z20.822 Contact with and (suspected) exposure to COVID-19
CPT/HCPCS: 36415; 71045; 71275; 80048; 81001; 81025; 84484; 85025; 87635; 93005; 99284; Q9967

== ENCOUNTER → 2021-09-09 13:24 | Outpatient (BNVA) | payer BC, SELFPAY | PROVIDERS: PCP Internal Medicine; Visit Provider Internal Medicine Pulmonary Disease ==

== ENCOUNTER 2021-09-09 13:48 | Outpatient (REF) | payer BC, SELFPAY ==
[2021-09-09 14:00] LABS: MANUAL DIFF FLAG NO
[2021-09-09 14:23] LABS: Basophils Percent Auto 0.1 % (0-2); Hematocrit 42.6 % (37.0-47.0); Hemoglobin 13.8 g/dl (12.0-16.0); Imm Gran Abs Auto 0.04 X10*3/uL (0.00-0.03); Imm Gran Pct Auto 0.6 % (0.0-0.4); Lymphocytes Absolute Auto 2.2 X10*3/uL (1.2-4.9); Lymphocytes Percent Auto 31.2 % (20-40); Mean Corpuscular HGB Conc 32.4 g/dl (31.0-35.0); Mean Corpuscular Hemoglobin 26.8 pg (27.0-33.0); Mean Corpuscular Volume 82.9 fL (80.0-98.0); Mean Platelet Volume 10.4 fL (9.4-12.3); Monocytes Absolute Auto 0.5 X10*3/uL (0.1-1.2); Monocytes Percent Auto 7.3 % (2-11); Neutrophils Absolute Auto 4.2 x10*3/uL (2.0-8.3); Neutrophils Percent Auto 60.8 % (45-73); Platelet Count 379 X10*3/uL (160-400); Red Blood Count 5.14 X10*6/uL (4.20-5.50); Red Cell Distribution Width 14.2 % (11.0-16.0)
[2021-09-09 14:28] LABS: INTERNATIONAL NORM RATIO 1.2 (0.9-1.1); Prothrombin Time 13.6 SEC (9.9-13.0)
== END 2021-09-09 13:49 | disposition home or self-care (01) ==
LOC: HO.LAB 13:48
PROVIDERS: PCP Internal Medicine; Visit Provider Internal Medicine Pulmonary Disease
DX: R04.2 Hemoptysis (principal)
CPT/HCPCS: 36415; 85025; 85610

== ENCOUNTER → 2022-03-12 13:34 | Outpatient (REF) | payer BC, MEDICAID, SELFPAY ==
--- NOTE | 2022-03-12 13:37 | ECG_ITS ---
Hook-up date: 2022-03-12 12:47:00 Duration: 47:59:00 Test Indications: SYNCOPE AND COLLAPSE Medications: [id number] QRS complexes 10 Ventricular ectopics which represent <1 % of total QRS comp. 81 Supraventricular ectopics which represent <1 % of total QRS comp. * Paced QRS complexs which represent % of total QRS comp. VENTRICULAR ECTOPY 10 Isolated 0 Bigeminal Cycles 0 Couplets 0 Runs 0 Beats in Runs * Beats LONGEST at * BPM at :: -- * Beats FASTEST at * BPM at :: -- SUPRAVENTRICULAR ECTOPY 69 Isolated 6 Couplets 0 Runs 0 Beats in Runs * Beats LONGEST at * BPM at :: -- * Beats FASTEST at * BPM at :: -- HEART RATES 49 MIN at 07:26:23 2022-03-13 95 AVG 184 MAX at 12:50:22 2022-03-12 LONGEST RR 1.3920 secs at 04:03:43 2022-03-13 S-T LEVELS Channel 1 - 128 mm at 12:47:00 2022-03-12 - 128 mm at 12:47:00 2022-03-12 Channel 2 - 128 mm at 12:47:00 2022-03-12 - 128 mm at 12:47:00 2022-03-12 Channel 3 - 128 mm at 03:20:61 -- - 128 mm at 03:20:61 Basic rhythm Normal sinus rhythm No long pause or profound bradycardia Frequent Sinus tachycardia , 48% of time HR > 100 bpm Rare Premature atrial complexes Patient reported symptoms of dizziness correlated with NSR Referred By: Russ Lozoya Overread By: SALOME MAXWELL MD
== END ==
LOC: HO.CARD 13:34
PROVIDERS: Visit Provider Internal Medicine
DX: R55 Syncope and collapse (principal)
CPT/HCPCS: 93225; 93226

== ENCOUNTER 2022-04-05 10:35 | Outpatient (REF) | payer BC, MEDICAID, SELFPAY ==
--- NOTE | ~2022-04-05 | XR_ITS ---
EXAMINATION: XR CHEST CLINICAL INFORMATION: Shortness of breath. COMPARISON: 09/02/2021 chest radiograph. TECHNIQUE: 2 views of the chest were obtained. FINDINGS: No significant abnormality is noted involving the heart, lungs, mediastinum, bony thorax or soft tissues. XR/XR chest 2V IMPRESSION: No acute cardiopulmonary process.
[2022-04-05 13:52] LABS: D Dimer High Sensitivity 582 NG/ML
== END 2022-04-05 10:36 | disposition home or self-care (01) ==
LOC: HO.HMGCX 10:35
PROVIDERS: PCP Internal Medicine; Visit Provider Physician Assistant
DX: R06.02 Shortness of breath (principal)
CPT/HCPCS: 36415; 71046; 85379

== ENCOUNTER → 2022-11-29 15:12 | Outpatient (REF) | payer BC, SELFPAY | LOC: HO.SL 15:12 | PROVIDERS: Visit Provider Internal Medicine | DX: F51.5 Nightmare disorder (principal); R06.83 Snoring | CPT/HCPCS: 95806 ==

== ENCOUNTER 2023-01-31 12:53 | Outpatient (REF) | payer BC, OTHER, SELFPAY | END 2023-01-31 12:54 | disposition home or self-care (01) | LOC: HO.SH 12:53 | PROVIDERS: Visit Provider Internal Medicine | DX: Z01.118 Encounter for examination of ears and hearing with other abnormal findings (principal); H93.13 Tinnitus, bilateral | CPT/HCPCS: 92557; 92567 ==

== ENCOUNTER 2024-02-01 13:42 | Outpatient (AMB) | payer BC, SELFPAY ==
[2024-02-01 14:10] VITALS: BP 128/78; PULSE 103; O2SAT 98; BMI 51.0
--- NOTE | 2024-02-01 14:10 | MHC.PC.OV ---
Vital Signs 02/01/24 14:10 Height 5 ft 6 in Weight 316 lb BMI 51.0 BP 128/78 Blood Pressure Location Lt brachial Position Sitting Pulse 103 H Pulse Source Pulse Oximeter Pulse Oximetry (%) 98 Oxygen Delivery Method Room Air Intake Visit Reasons: Annual Exam Allergies beeswax Allergy (Verified 02/01/24 14:11) Anaphylaxis morphine Allergy (Verified 02/01/24 14:11) Seizure pineapple Adverse Reaction (Mild, Verified 02/01/24 14:11) unknown coconut Adverse Reaction (Verified 02/01/24 14:11) Rash Medication List - Last Reconciled 02/01/24 by Russ Membreno Po, albuterol sulfate 90 mcg/actuation 2 puffs inhalation Q6H PRN fluticasone propionate 110 mcg/actuation 2 puffs inhalation BID 30 days hydroxyzine pamoate (Vistaril) 25 mg PO BEDTIME ibuprofen 400 mg PO Q8H lactobacillus combo no.11 (Probiotic) 1 cap PO DAILY nortriptyline 25 mg PO BEDTIME PRN omeprazole 40 mg PO BID PRN sumatriptan succinate (Imitrex) 50 mg PO .QD PRN topiramate (Topamax) 25 mg PO DAILY venlafaxine ER 150 mg PO BEDTIME 90 days wheat dextrin (Best Fiber) 1 packet PO DAILY Tobacco use date assessed: 02/01/24 Dental Screening Dental Screen Date: 02/01/24 Did you have a dental visit in the last 12 months?: Yes Did you have a dental problem in the last 6 months where you did not have access to dental care?: No Was dental information given to patient?: Patient has dentist HPI Annual Exam HPI Details 28-year-old morbidly obese female with asthma GERD generalized anxiety disorder last seen in October 2022 patient is here for physical exam. Patient had colonoscopy done May 2022 tubular adenoma 5 years, had a normal sleep study. Review of the notes went to a vascular surgeon due to pain on the calf had ultrasound done negative left. Patient had a procedure for the left ankle instability lateral had left 1st metatarsal closing wedge osteotomy, lateral ligament reconstruction or hyper production procedure Dr. Ordoñez May 2023. PAtient has the hardware on the L ankle and is having pain on this - asking for taking off the hardware and awaiting Dr. Ordoñez. syncope while showering, seconds, . has palpations occ knows when stopping venlafexine PFSH Medical History (Updated 02/01/24 @ 14:46 by Russ Lozoya MD) Left chest pressure Coughing up blood IBS (irritable bowel syndrome) Anxiety and depression Migraines PCOS (polycystic ovarian syndrome) Asthma Surgical History (Updated 01/29/24 @ 14:16 by Russ Lozoya MD) Left ankle instability History of tonsillectomy History of laparoscopic cholecystectomy Family History (Updated 02/01/24 @ 14:12 by Paulina Bauer [facility] [address]) Maternal Grandmother Myocardial infarction Lymphoma Family/Other Colon cancer Social History (Updated 02/01/24 @ 14:32 by Russ Lozoya MD) Housing: House Alcohol intake: current Comment: once Q 3-4 months 2 drinks Patient Tobacco Use Status: Never used Tobacco Years Smoked: edibles occ e-Cigarette/Vaping Use: Never Used Second Hand Smoke Exposure: No Current occupational status: employed Sexual orientation: Straight/Heterosexual Gender identity: Female Cognitive needs: No Hearing needs: No Vision needs: No Questionnaire PHQ-9 Over the last 2 weeks, how often have you been bothered by any of the following problems? 1. Little interest or pleasure in doing things: not at all 2. Feeling down, depressed, or hopeless: not at all 3. Trouble falling or staying asleep, or sleeping too much: not at all 4. Feeling tired or having little energy: not at all 5. Poor appetite or overeating: not at all 6. Feeling bad about yourself - or that you are a failure or have let yourself or your family down: not at all 7. Trouble concentrating on things, such as reading the newspaper or watching television: not at all 8. Moving or speaking so slowly that other people could have noticed. Or the opposite - being so fidgety or restless that you have been moving around a lot more than usual: not at all 9. Thoughts that you would be better off or of hurting yourself in some way: not at all Total score: 0 Depression Screening Interpretation: Negative Depression Screening Done: Yes Source: Developed by Drs. Yaya Coughlin, Meagan Bah, Eren Maciel and colleagues, with an educational gilberto from [employer]. Thrive Questionnaire Date Thrive assessed: 02/01/24 I am a: Patient What is your living situation today?: I have a steady place to live Within the past 12 months, did the food you bought not last and you didn't have the money to get more?: Never true Within the past 12 months, did you worry whether your food would run out before you got money to buy more?: Never true Do you have trouble paying for medicines?: No Do you have trouble getting transportation to medical appointments?: No Do you have trouble paying your heating and electricity bill?: No Do you have trouble taking care of your child, family member or friend?: No Do you have trouble with day-to-day activities such as bathing, preparing meals, shopping, managing finances, etc.?: No Are you currently unemployed and looking for a job?: No Are you interested in more education?: No Currently or been in a relationship where the following occur: no concerns reported THRIVE Score: 0 AUDIT C Alcohol Use Questionnaire (AUDIT-C) 1. How often do you have a drink containing alcohol?: Monthly or less 2. How many drinks containing alcohol do you have on a typical day when you are drinking?: 1 or 2 3. How often do you have six or more drinks on one occasion?: Never Total Score: 1 MOON-7 AMB Questionnaire MOON-7 Date MOON - 7 assessed: 02/01/24 Feeling nervous, anxious, or on edge: 3 = Nearly every day Not being able to stop or control worryin = Nearly every day Worrying too much about different things: 3 = Nearly every day Trouble relaxin = Nearly every day Being so restless that it is hard to sit still: 3 = Nearly every day Becoming easily annoyed or irritable: 3 = Nearly every day Feeling afraid as if something awful might happen: 2 = More than half the days Total MOON-7 score (0-4 normal; 5-9 mild; 10-14 moderate; 15-21 severe): 20 Source: Developed by Drs. Yaya Coughlin, Meagan Bah, Eren Maciel and colleagues, with an educational gilberto from [employer]. Review of Systems Const Denies poor appetite and Denies weakness Eyes Denies no additional complaints ENT Reports Normal hearing present, Denies dizziness, Denies nasal congestion, Denies tinnitus and Denies sore throat Card Denies chest pain, Denies syncope, Denies rapid heart rate and Denies dyspnea Resp Denies cough and Denies dyspnea GI Denies change in stool character, Reports constipation, Denies diarrhea, Denies nausea and Denies vomiting Denies urinary frequency, Denies difficulty voiding and Denies dysuria Neuro Reports Normal hearing present, Denies confusion, Denies dizziness, Denies syncope and Denies weakness Psych Denies confusion Physical exam (Primary Care) Vital Signs: Last Vital Signs Pulse 103 H 02/01/24 14:10 BP 128/78 02/01/24 14:10 Pulse Ox 98 02/01/24 14:10 Oxygen Delivery Method Room Air 02/01/24 14:10 BMI result Body Mass Index 51.0 Tobacco/Smoking Status: Tobacco use Status Tobacco use date assessed 02/01/24 02/01/24 14:20 Patient Tobacco Use Status Never used Tobacco 02/01/24 14:32 e-Cigarette/Vaping Use Never Used 02/01/24 14:32 PHQ-9: PHQ-9 Score PHQ-9: Total score 0 02/01/24 14:35 Depression Screening Interpretation: Negative Thrive Assessment: Date of Thrive Assessment Date Thrive assessed 02/01/24 02/01/24 14:20 Currently or been in a relationship where the following occur: no concerns reported Const General: No confusion Orientation/consciousness: No confusion HENMT Head: Yes normocephalic Ears: external ears normal and TM's normal bilaterally Face and sinus: Yes normal facial exam Mouth: moist mucous membranes Throat: Yes tonsils normal Eyes Conjunctivae: conjunctivae normal Pupils: Equal, round and reactive pupils present and Pupil accommodation reflex normal Direct Ophthalmoscopy: normal light reflex Neck Neck: No lymphadenopathy Thyroid: Thyroid normal Chest Chest palpation & inspection: normal inspection of the chest Resp Effort & Inspection: normal respiratory effort and no audible wheezes Auscultation: clear to auscultation bilaterally, no crackles, no wheezes and lung sounds not diminished Cardio Rate: regular rate Rhythm: regular rhythm Peripheral pulses: radial pulses present and dorsalis pedis present GI Palpation (GI): no masses Auscultation: normal bowel sounds and normoactive bowel sounds Rectal Exam - Female: deferred Skin General skin exam: no rashes or lesions noted Rashes: no rashes Neuro General: No confusion Cranial nerves: Yes Equal, round and reactive pupils present and Yes Normal hearing present Cognition (Neuro): normal cognition Gait exam (Neuro): Normal gait present Motor exam (neuro): 5/5 motor strength present throughout Deep tendon reflexes (DTR's): Right brachioradialis reflex intensity grade: 2+, Left brachioradialis reflex intensity grade: 2+, Right patellar reflex intensity grade: 2+ and Left patellar reflex intensity grade: 2+ Extrem General: No edema Immunizations pneumoc 20-abiel conj-dip cr(PF) 0.5 mL IM syringe Performing Provider: Russ Lozoya MD Performing Location: [facility] Administered by: ANTON Ortega on 02/01/24 15:02 Dose Route Admin Location Dispensed Lot Number Expiration Date NDC Pharmacist Apprentice 0.5 mL IM Left Deltoid 0.5 mL [id number] 01/10/25 [id number] [employer] VIS Given Date VIS Provided VIS Publication Date 02/01/24 Single Vaccine 21 Eligibility Eligibility Date Funding Source Not [facility] Eligible 02/01/24 Private Assessment and Plan Assessment & Plan (1) Annual physical exam: Code(s): Z00.00 - Encounter for general adult medical examination without abnormal findings (2) Asthma: Code(s): J45.909 - Unspecified asthma, uncomplicated Qualifiers: Asthma complication type: with acute exacerbation Asthma persistence: persistent Asthma severity: mild Qualified Code(s): J45.31 - Mild persistent asthma with (acute) exacerbation Plan: On albuterol inhaler (3) GERD (gastroesophageal reflux disease): Code(s): K21.9 - Gastro-esophageal reflux disease without esophagitis Plan: Avoid the foods that causes that usually spicy foods, tomato products, juices, coffee, soda and foods that your sensitive to. After eating do not lie down, allow 3-4 hours before in lie down. And keep the head of bed above 30 degrees to avoid the acid from going up. (4) Left ankle instability: Comment: Left lateral ankle instability and cavus, left 1st metatarsal closing wedge osteotomy, lateral ligament reconstruction or hyper production procedure Dr. Ordoñez May 2023 Code(s): M25.372 - Other instability, left ankle Plan: Status post surgery 2022 (5) Morbid obesity: Code(s): E66.01 - Morbid (severe) obesity due to excess calories Orders: Orders Free T4 (Free Thyroxine) Today K21.9 - Gastro-esophageal reflux disease without esophagitis Lipid Panel Today E78.00 - Pure hypercholesterolemia, unspecified, K21.9 - Gastro-esophageal reflux disease without esophagitis Thyroid Stimulating Hormone Today K21.9 - Gastro-esophageal reflux disease without esophagitis Vitamin B12 and Folate Today K21.9 - Gastro-esophageal reflux disease without esophagitis Ferritin Today K21.9 - Gastro-esophageal reflux disease without esophagitis Pneumococcal 20 Immunization Today Z23 - Encounter for immunization Complete Blood Count Auto Diff Today K21.9 - Gastro-esophageal reflux disease without esophagitis Comprehensive Met. Panel Today K21.9 - Gastro-esophageal reflux disease without esophagitis Vitamin D 25-OH Total Today K21.9 - Gastro-esophageal reflux disease without esophagitis UA CC w/rflx Micro + Cult Today K21.9 - Gastro-esophageal reflux disease without esophagitis, R30.0 - Dysuria Medications: New semaglutide for 4 weeks 0.25 mg (0.368 mL) subcut QWEEK 3 mL 2RF E66.01 - Morbid (severe) obesity due to excess calories semaglutide for 4 weeks 0.25 mg (0.368 mL) subcut QWEEK 3 mL 2RF E66.01 - Morbid (severe) obesity due to excess calories pneumoc 20-abiel conj-dip cr(PF) 0.5 mL IM ONCE 0.5 mL 0RF Z23 - Encounter for immunization Refilled fluticasone propionate 110 mcg/actuation 2 puffs inhalation BID 30 days 12 grams 5RF R06.09 - Other forms of dyspnea, U09.9 - Post COVID-19 condition, unspecified Coding Level of Care Code Est Pt Prev Care [id number]) Diagnoses Annual physical exam Z00.00 Mild persistent asthma with acute exacerbation J45.31 Asthma complication type: with acute exacerbation Asthma persistence: persistent Asthma severity: mild GERD (gastroesophageal reflux disease) K21.9 Left ankle instability M25.372 Morbid obesity E66.01 Additional Codes PHQ-9 - 36507 - PHQ-9 Billing: ([id number])
== END 2024-02-01 15:00 | disposition home or self-care (01) ==
LOC: HO.HMGH 13:53
PROVIDERS: PCP Internal Medicine; Visit Provider Internal Medicine
DX: Z00.00 Encounter for general adult medical examination without abnormal findings (principal); E66.01 Morbid (severe) obesity due to excess calories; Z68.43 Body mass index [BMI] 50.0-59.9, adult; Z23 Encounter for immunization; J45.31 Mild persistent asthma with (acute) exacerbation; K21.9 Gastro-esophageal reflux disease without esophagitis; M25.372 Other instability, left ankle
CPT/HCPCS: 90471; 90677; 99395